=== PATIENT | male | born 1965 | race American Indian/Alaskan Native ===

== ENCOUNTER 2021-04-26 03:01 | Inpatient (IN) | payer OTHER, SELFPAY ==
--- NOTE | 2021-04-26 03:42 | Emergency Department Report ---
ED Shortness of Breath HPI - General Chief Complaint: Dyspnea/Respdistress Stated Complaint: DEANNE WEAKNESS, POSS PUI Time Seen by Provider: 04/26/21 03:31 Source: EMS Mode of arrival: Stretcher Limitations: No Limitations - History of Present Illness Initial Comments: Patient is 56 years old male with no significant past medical history. Patient presented to the ER complaining of shortness of breath, cough and generalized weakness. Patient denied any nausea or vomiting. No abdominal pain. Patient stated that he is homeless. Patient stated that he did not receive COVID-19 vaccination yet. MD Complaint: shortness of breath, cough -: week(s) Severity: moderate - Related Data Allergies Allergy/AdvReac Type Severity Reaction Status Date / Time No Known Allergies Allergy Verified 04/26/21 06:21 ED Review of Systems ROS: Stated complaint: DEANNE WEAKNESS, POSS PUI Other details as noted in HPI Comment: All other systems reviewed and negative Constitutional: denies: chills, fever ENT: denies: ear pain, dental pain Respiratory: cough, shortness of breath, SOB with exertion. denies: orthopnea Cardiovascular: denies: chest pain, palpitations, dyspnea on exertion Gastrointestinal: denies: abdominal pain, nausea, vomiting ED Past Medical Hx - Past Medical History Previous Medical History?: No - Surgical History Past Surgical History?: No ED Physical Exam - General Limitations: No Limitations General appearance: alert, in no apparent distress - Head Head exam: Present: atraumatic, normocephalic, normal inspection - Eye Eye exam: Present: normal appearance, PERRL - ENT ENT exam: Present: normal exam, normal orophraynx, mucous membranes moist - Neck Neck exam: Present: normal inspection, full ROM. Absent: tenderness, meningismus, lymphadenopathy, thyromegaly - Respiratory Respiratory exam: Present: rales. Absent: respiratory distress, wheezes, rhonchi, accessory muscle use, decreased breath sounds, prolonged expiratory - Extremities Exam Extremities exam: Present: normal inspection, full ROM, normal capillary refill. Absent: tenderness, pedal edema, calf tenderness - Back Exam Back exam: Present: normal inspection, full ROM. Absent: CVA tenderness (R), CVA tenderness (L), paraspinal tenderness, vertebral tenderness - Neurological Exam Neurological exam: Present: alert, oriented X3, CN II-XII intact - Psychiatric Psychiatric exam: Present: normal mood - Skin Skin exam: Present: warm, intact, normal color ED Course Vital Signs 04/26/21 04/26/21 04/26/21 03:37 03:46 04:00 Temperature Pulse Rate 108 H 102 H Respiratory 24 16 24 Rate Blood Pressure 108/77 112/79 Blood Pressure [Right] O2 Sat by Pulse 93 95 Oximetry 04/26/21 04/26/21 04/26/21 04:16 04:30 04:46 Temperature Pulse Rate 103 H 101 H 114 H Respiratory 26 H 30 H 12 Rate Blood Pressure 112/79 108/77 108/77 Blood Pressure [Right] O2 Sat by Pulse 92 91 93 Oximetry 04/26/21 04/26/21 04/26/21 05:00 05:16 05:17 Temperature Pulse Rate 102 H 101 H Respiratory 25 H 32 H Rate Blood Pressure 113/77 113/77 Blood Pressure [Right] O2 Sat by Pulse 93 91 94 Oximetry 04/26/21 04/26/21 04/26/21 05:30 05:46 06:00 Temperature Pulse Rate 99 H 94 H 95 H Respiratory 28 H 29 H 28 H Rate Blood Pressure 109/78 109/78 107/76 Blood Pressure [Right] O2 Sat by Pulse 91 93 92 Oximetry 04/26/21 04/26/21 04/26/21 06:03 06:16 06:30 Temperature 98.0 F Pulse Rate 89 100 H 106 H Respiratory 25 H 20 Rate Blood Pressure 107/76 117/78 Blood Pressure [Right] O2 Sat by Pulse 94 94 Oximetry 04/26/21 04/26/21 04/26/21 06:46 07:00 07:32 Temperature Pulse Rate 102 H 99 H 81 Respiratory 24 23 19 Rate Blood Pressure 117/78 110/70 Blood Pressure 124/71 [Right] O2 Sat by Pulse 99 Oximetry 04/26/21 04/26/21 04/26/21 09:01 10:08 12:49 Temperature Pulse Rate 92 H 74 Respiratory 19 19 19 Rate Blood Pressure Blood Pressure 110/75 118/81 [Right] O2 Sat by Pulse 96 96 95 Oximetry 04/26/21 17:44 Temperature Pulse Rate 81 Respiratory 19 Rate Blood Pressure Blood Pressure 110/68 [Right] O2 Sat by Pulse 95 Oximetry ED Medical Decision Making - Lab Data Result diagrams: 04/26/21 03:37 04/26/21 03:37 - Radiology Data Radiology results: report reviewed - Medical Decision Making Patient is 56 years old male with no significant past medical history. Patient presented to the ER complaining of shortness of breath, cough and generalized weakness. Patient denied any nausea or vomiting. No abdominal pain. Patient stated that he is homeless. Patient stated that he did not receive COVID-19 vaccination yet. Patient initial oxygen saturation was 91% improved to 95%. Chest x-ray showed bilateral patchy infiltrate consistent with atypical pneumonia. Patient received Rocephin, Zithromax and Decadron. Patient also started on normal saline. I discussed the patient with Dr. Pelaez, he agreed to admit the patient to medical service for further management. Critical Care Time: Yes Critical care time in (mins) excluding proc time.: 30 Critical care attestation.: If time is entered above; I have spent that time in minutes in the direct care of this critically ill patient, excluding procedure time. ED Disposition Clinical Impression: Pneumonia, Suspected COVID-19 virus infection, Lactic acidosis Disposition: OP ADMIT IP TO THIS HOSP Is pt being admited?: Yes Condition: Stable
[2021-04-26 03:50] LABS: Basophils % (Auto) 0.3 % (0.0-1.8); Lymphocytes # (Auto) 1.1 K/mm3 (1.2-5.4); Lymphocytes % (Auto) 11.1 % (13.4-35.0); Mean Corpuscular HGB Conc 36 % (32-34); Mean Corpuscular Volume 92 fl (84-94); Monocytes # (Auto) 1.1 K/mm3 (0.0-0.8); Monocytes % (Auto) 12.1 % (0.0-7.3); Platelet Count 338 K/mm3 (140-440); Red Blood Count 5.52 M/mm3 (3.65-5.03); Red Cell Distribution Width 15.2 % (13.2-15.2)
[2021-04-26 04:11] LABS: Calcium 9.1 mg/dL (8.4-10.2)
[2021-04-26 04:13] LABS: Hematocrit 50.5 % (35.5-45.6); Hemoglobin 17.9 gm/dl (11.8-15.2)
[2021-04-26] MEDS ORDERED: SODIUM CHLORIDE 0.9% 1000 ML 1,000 ML IV ONE (04:38)
--- NOTE | 2021-04-26 05:11 | XRay Report ---
CHEST 1 VIEW 04/26/2021 3:58 AM INDICATION / CLINICAL INFORMATION: Dyspnea. COMPARISON: None available. FINDINGS: SUPPORT DEVICES: None. HEART / MEDIASTINUM: No significant abnormality. LUNGS / PLEURA: Patchy bibasilar airspace disease. No pneumothorax. ADDITIONAL FINDINGS: No significant additional findings. IMPRESSION: 1. Patchy bibasilar pneumonia. Atypical/viral pneumonia could be considered. Signer Name: Helen Yi MD Signed: 04/26/2021 5:06 AM Workstation Name: [id number]
[2021-04-26] MEDS ORDERED: AZITHROMYCIN/NS 500 MG/250 ML 500 MG/250 ML BAG IV ONE (05:17)
[2021-04-26] MEDS ORDERED: cefTRIAXone/NS 1 GM/50 ML 1 GM/50 ML BAG IV ONE (05:17)
[2021-04-26] MEDS ORDERED: dexAMETHasone 4 MG/ML VIAL IV ONE (05:17)
--- NOTE | 2021-04-26 12:06 | History and Physical Report ---
History of Present Illness Date of examination: 04/26/21 Date of admission: 04/26/21 05:23 Chief complaint: shorntess of breath History of present illness: HPI 56 yo homeless gentleman presenting to our facility with complaint of shortness of breath. SOB is associated with cough, generalized weakness, nausea and vomtiing. He states his appetitie has been poor. Patient denied fevers/chills but did admit to generalized malaise. He denied being in contact with sick individuals to his knowledge but does state that he is homeless and does not adhere to strict masking policy. He has not yet recieved the covid 19 vaccination. Remainder of ROS negative except for stated above. On my encounter, he was not in any distress, breahting comfortably. His vitals were stable and he was saturating in mid 90's on room air. PMHx denies PSHx denies SH homeless denies smoking, etoh use, rec drug use FH reviewed non contributory. Allergies: NKDA Meds: denies Medications and Allergies Allergies Allergy/AdvReac Type Severity Reaction Status Date / Time No Known Allergies Allergy Verified 04/26/21 06:21 Active Meds: Active Medications Sodium Chloride (Nacl 0.9% 1000 Ml) 1,000 mls @ 100 mls/hr IV DIRECT SADIE Stop: 04/26/21 22:14 Review of Systems All systems: negative (for noted in HPI) Exam - Constitutional Vitals: Temp Pulse Resp BP Pulse Ox 98.0 F 92 H 19 110/75 96 04/26/21 06:03 04/26/21 09:01 04/26/21 10:08 04/26/21 09:01 04/26/21 10:08 General appearance: Present: no acute distress, well-nourished - EENT Eyes: Present: PERRL, EOM intact ENT: hearing intact, clear oral mucosa, poor dentition - Neck Neck: Present: supple, normal ROM - Respiratory Respiratory effort: normal - Cardiovascular Rhythm: regular - Extremities Extremities: no ischemia, pulses intact, No edema, normal temperature, normal color Peripheral Pulses: within normal limits - Abdominal General gastrointestinal: Present: soft, non-tender, non-distended - Psychiatric Psychiatric: appropriate mood/affect, cooperative - Neurologic Neurologic: CNII-XII intact HEART Score - HEART Score Troponin: Troponin T < 0.010 ng/mL (0.00-0.029) 04/26/21 05:17 Results - Labs CBC & Chem 7: 04/26/21 03:37 04/26/21 03:37 Labs: Laboratory Last Values WBC 9.5 K/mm3 (4.5-11.0) 04/26/21 03:37 RBC 5.52 M/mm3 (3.65-5.03) H 04/26/21 03:37 Hgb 17.9 gm/dl (11.8-15.2) H 04/26/21 03:37 Hct 50.5 % (35.5-45.6) H 04/26/21 03:37 MCV 92 fl (84-94) 04/26/21 03:37 MCH 33 pg (28-32) H 04/26/21 03:37 MCHC 36 % (32-34) H 04/26/21 03:37 RDW 15.2 % (13.2-15.2) 04/26/21 03:37 Plt Count 338 K/mm3 (140-440) 04/26/21 03:37 Lymph % (Auto) 11.1 % (13.4-35.0) L 04/26/21 03:37 [place] % (Auto) 12.1 % (0.0-7.3) H 04/26/21 03:37 Eos % (Auto) 0.0 % (0.0-4.3) 04/26/21 03:37 Baso % (Auto) 0.3 % (0.0-1.8) 04/26/21 03:37 Lymph # (Auto) 1.1 K/mm3 (1.2-5.4) L 04/26/21 03:37 [place] # (Auto) 1.1 K/mm3 (0.0-0.8) H 04/26/21 03:37 Eos # (Auto) 0.0 K/mm3 (0.0-0.4) 04/26/21 03:37 Baso # (Auto) 0.0 K/mm3 (0.0-0.1) 04/26/21 03:37 Seg Neutrophils % 76.5 % (40.0-70.0) H 04/26/21 03:37 Seg Neutrophils # 7.2 K/mm3 (1.8-7.7) 04/26/21 03:37 Sodium 141 mmol/L (137-145) 04/26/21 03:37 Potassium 4.7 mmol/L (3.6-5.0) 04/26/21 03:37 Chloride 104.3 mmol/L (98-107) 04/26/21 03:37 Carbon Dioxide 20 mmol/L (22-30) L 04/26/21 03:37 Anion Gap 21 mmol/L 04/26/21 03:37 BUN 61 mg/dL (9-20) H 04/26/21 03:37 Creatinine 2.4 mg/dL (0.8-1.3) H 04/26/21 03:37 Estimated GFR 28 ml/min 04/26/21 03:37 BUN/Creatinine Ratio 25 % 04/26/21 03:37 Glucose 139 mg/dL (75-100) H 04/26/21 03:37 Lactic Acid 2.70 mmol/L (0.7-2.0) H* 04/26/21 05:17 Calcium 9.1 mg/dL (8.4-10.2) 04/26/21 03:37 Troponin T < 0.010 ng/mL (0.00-0.029) 04/26/21 05:17 NT-Pro-B Natriuret Pep 20.78 pg/mL (0-900) 04/26/21 05:17 Microbiology: Microbiology 04/26/21 04:01 Peripheral/Venous Blood Culture - Preliminary Culture in Progress 04/26/21 03:55 Peripheral/Venous Blood Culture - Preliminary Culture in Progress Assessment and Plan Assessment and plan: 1. COVID 19 Pneumonia - Presented short of breath, however, saturating in 90's on RA this hospitalization. - WBC normal, LA downtrending - admission CXR notes patchy bilateral consolidation. Official read per radiology report. - empiric antibiotics: azithro/rocephin - hold off decadron at this time, patient does not meet criteria - prn albuterol inhaler - will hold off on ID/pulm consultations at this time. Potentially consider if patient deteriorates. 2. Acute Kidney Injury - likely pre-renal, dehydration - Cr: 2.1 - IV NS ordered - recheck BMP in AM 3. Lactic acidosis LA: 3.0--> 2.7, mostly secondary to dehydration. Downtrending 4. Homeless Single Person - noted on history 5. DVT prophylaxis -Heparin 5000 U subq bid. renal dosing Diet: Renal Dispo: Discharge home tomorrow if patient remains on room air. - Patient Problems (1) Respiratory distress Current Visit: Yes Status: Acute (2) Pneumonia due to 2019 novel coronavirus Current Visit: Yes Status: Acute (3) Acute kidney injury Current Visit: Yes Status: Acute (4) DVT prophylaxis Current Visit: Yes Status: Acute (5) Homeless single person Current Visit: Yes Status: Acute (6) Lactic acidosis Current Visit: Yes Status: Acute (7) Pneumonia Current Visit: Yes Status: Acute
[2021-04-26] MEDS ORDERED: SODIUM CHLORIDE 0.9% 1000 ML 1,000 ML IV SCH (12:15)
[2021-04-26] MEDS ORDERED: ALBUTEROL 2.5 MG/3 ML NEBU IH PRN (13:00)
[2021-04-26] MEDS ORDERED: ONDANSETRON 4 MG/2 ML INJ IV PRN (13:00)
[2021-04-26] MEDS ORDERED: ACETAMINOPHEN 325 MG TAB PO PRN (13:00)
[2021-04-26] MEDS ORDERED: oxyCODONE /ACETAMINOPHEN 5-325MG TAB PO PRN (13:00)
[2021-04-26] MEDS: HEPARIN 5,000 UNIT/1 ML VIAL SUB-Q SCH (23:13)
[2021-04-26] MEDS: DOCUSATE SODIUM 100 MG CAP PO SCH (23:13)
[2021-04-27 06:03] LABS: Calcium 8.3 mg/dL (8.4-10.2)
[2021-04-27] MEDS ORDERED: SODIUM POLYSTYRENE 15 GM/60 ML ORAL LIQD PO NR (09:30)
[2021-04-27] MEDS: DOCUSATE SODIUM 100 MG CAP PO SCH ×2 (10:30→21:42)
[2021-04-27] MEDS: HEPARIN 5,000 UNIT/1 ML VIAL SUB-Q SCH ×2 (10:31→21:42)
[2021-04-27] MEDS: AZITHROMYCIN/NS 500 MG/250 ML 500 MG/250 ML BAG IV SCH (10:31)
[2021-04-27] MEDS: cefTRIAXone/NS 1 GM/50 ML 1 GM/50 ML BAG IV SCH (10:31)
[2021-04-27] MEDS: DEXAMETHASONE 2 MG TAB PO SCH (11:06)
--- NOTE | 2021-04-27 13:05 | Consultation ---
History of Present Illness - Reason for Consult Consult date: 04/27/21 - History of Present Illness 56-year-old man no known past medical history presented to hospital complaining of shortness of breath. He also notes associated cough, weakness, nausea, vomiting. He is known to be homeless, and has not received a Covid vaccination. Afebrile with a normal white count. Covid positive. Decreased renal function. Blood cultures no growth so far. Currently on ceftriaxone and azithromycin. Imaging personally viewed: Chest x-ray: Patchy bibasilar pneumonia Review of systems: Deferred to reduce to the risk of transmission of COVID-19 Medications and Allergies Allergies Allergy/AdvReac Type Severity Reaction Status Date / Time No Known Allergies Allergy Verified 04/26/21 06:21 Home Medications Medication Instructions Recorded Confirmed Last Taken Type No Known Home Medications [No 04/27/21 04/27/21 Unknown History Reported Home Medications] Active Meds: Active Medications Acetaminophen (Acetaminophen 325 Mg Tab) 650 mg PO Q4H PRN PRN Reason: Pain MILD(1-3)/Fever >100.5/FARRELL Albuterol (Albuterol 2.5 Mg/3 Ml Nebu) 2.5 mg IH Q4HRT PRN PRN Reason: Shortness Of Breath Dexamethasone (Dexamethasone 2 Mg Tab) 6 mg PO Q24HR [facility] Last Admin: 04/27/21 11:06 Dose: 6 mg Documented by: Docusate Sodium (Docusate Sodium 100 Mg Cap) 100 mg PO BID SADIE Last Admin: 04/27/21 10:30 Dose: 100 mg Documented by: Heparin Sodium (Porcine) (Heparin 5,000 Unit/1 Ml Vial) 5,000 unit SUB-Q Q12HR SADIE Last Admin: 04/27/21 10:31 Dose: 5,000 unit Documented by: Ceftriaxone Sodium (Rocephin/Ns 1 Gm/50 Ml) 1 gm in 50 mls @ 100 mls/hr IV Q24H [facility]; Protocol Last Admin: 04/27/21 10:31 Dose: 100 mls/hr Documented by: Azithromycin (Zithromax/Ns) 500 mg in 250 mls @ 250 mls/hr IV Q24HR SADIE Last Admin: 04/27/21 10:31 Dose: 250 mls/hr Documented by: Ondansetron HCl (Ondansetron 4 Mg/2 Ml Inj) 4 mg IV Q8H PRN PRN Reason: Nausea And Vomiting Sodium Chloride (Sodium Chloride 0.9% 10 Ml Flush Syringe) 10 ml IV BID SADIE Last Admin: 04/27/21 11:07 Dose: 10 ml Documented by: Sodium Chloride (Sodium Chloride 0.9% 10 Ml Flush Syringe) 10 ml IV PRN PRN PRN Reason: LINE FLUSH Physical Examination - Physical Exam Narrative exam: Review of systems: Deferred to reduce to the risk of transmission of COVID-19 - Constitutional Vitals: Vital Signs Temp Pulse Resp BP Pulse Ox 98.0 F 75 27 H 132/87 95 04/26/21 06:03 04/27/21 10:00 04/27/21 10:00 04/27/21 10:00 04/27/21 10:00 Results - Labs CBC & Chem 7: 04/26/21 03:37 04/27/21 05:13 Labs: Abnormal lab results 04/26/21 04/27/21 Range/Units 09:02 05:13 Potassium 5.2 H (3.6-5.0) mmol/L BUN 67 H (9-20) mg/dL Creatinine 2.1 H (0.8-1.3) mg/dL Glucose 128 H (75-100) mg/dL Calcium 8.3 L (8.4-10.2) mg/dL Coronavirus (PCR) Positive A (Negative) Assessment and Plan Cultures: Blood culture no growth so far Covid PCR: Positive A/P: 56-year-old man no known past medical history admitted with COVID-19 #COVID-19 pneumonia: Patient presented with a week of symptoms, chest x-ray with bilateral infiltrates, admission O2 sats 92% on room air. #Acute hypoxemic respiratory failure: Likely secondary to COVID-19 infection. #BON: renally dose medications. Has improved, now candidate for Remdesivir. Recs: -Dexamethasone 6 mg IV/PO daily for 10 days -If requiring supplemental O2 recommend Remdesivir 200 mg IV q day x 1 followed by 100 mg IV q day x 4 days -Obtain q48-72h inflammatory markers - ferritin, Ddimer, CRP, LDH -Continue ceftriaxone 2 gm IV qday and azithromycin 500 mg PO qday, if procalcitonin <0.25 ng/mL stop antibiotics -Anticoagulation per hospital protocol -Proning as able Thank you for the consult, we will continue to follow. Lydia Monteiro MD [facility] ([facility] O: [phone] F: [phone]
--- NOTE | 2021-04-27 13:45 | Progress Note ---
Assessment and Plan This is a 56-year-old homeless man with no known past medical history who has not received Covid vaccination, presented to the hospital complaining of shortness of breath associated with cough weakness nausea and vomiting. Chest x-ray in the ER showed patchy bibasilar pneumonia, his Covid test was positive. Patient was admitted for further evaluation and management. Assessment and plan: --COVID-19 pneumonia -Patient tested positive for COVID-19 virus -CXR shows patchy parenchymal disease which represent atypical pneumonia -Placed on dexamethasone, azithromycin and Rocephin in the ED -Continue on dexamethasone for total 10 days and will initiate remdesivir total 5 days if patient becomes hypoxic -Follow inflammatory markers including procalcitonin level -Infectious disease consulted, appreciate recommendations -Droplet/contact isolation -Continue SPO2 monitoring -Supplemental oxygen as needed -Pulmonary hygiene -Prone to sleep -Vitamin C, vitamin D, zinc -Anticoagulation per protocol -Lasix IV as needed to prevent pulmonary edema --Acute hypoxemic respiratory failure, likely secondary to COVID-19 pneumonia -Nebs, empiric steroid, supplemental O2 as needed --BON, likely due to vasomotor nephropathy Renal function improving, continue gentle IV fluid hydration --Hyperkalemia, treated with Kayexalate and bicarbonate Repeat BMP tomorrow --Homelessness, patient has been living in the hotel, employment case manager to assist --DVT prophylaxis, continue heparin Daily clinical course: 04/27/21: Patient respiratory patel stable, continue to follow renal function. Creatinine slightly improved today, follow inflammatory markers. Potassium 5.2 : We will treat according to protocol. Repeat BMP tomorrow. Subjective Date of service: 04/27/21 Interval history: Patient seen and examined. Medical records and medication list reviewed. No acute event overnight noted by the RN. Patient denies any chest pain, improved difficulty breathing and able to ambulate. Patient is tolerating diet better. Patient resting on room air Discussed plan of care at bedside with patient. Objective - Exam Narrative Exam: Limited physical exam due to COVID-19 pandemic to minimize transmission of the disease and to preserve PPE. Vital reviewed and stable. GENERAL: well-developed well-nourished -[place] male lying on bed appeared to be in no discomfort. HEENT: Normocephalic. Atraumatic. NECK: Supple. CHEST/LUNGS: breathing nonlabored. HEART/CARDIOVASCULAR: Heart rate stable on telemetry ABDOMEN: Visibly not distended SKIN: There is no rash NEURO: No focal motor deficit. Follows command. MUSCULOSKELETAL: No joint effusion EXTRIMITY: No swelling, no cyanosis or clubbing. PSYCH: Cooperative. - Constitutional Vitals: Vital Signs - 12hr 04/27/21 04/27/21 04/27/21 01:46 02:00 02:16 Pulse Rate Respiratory Rate Blood Pressure 129/86 131/85 129/86 O2 Sat by Pulse 96 97 94 Oximetry 04/27/21 04/27/21 04/27/21 02:30 02:45 03:00 Pulse Rate Respiratory Rate Blood Pressure 117/78 117/78 112/81 O2 Sat by Pulse 93 92 92 Oximetry 04/27/21 04/27/21 04/27/21 03:16 03:30 03:46 Pulse Rate Respiratory Rate Blood Pressure 112/81 120/85 120/85 O2 Sat by Pulse 94 94 92 Oximetry 04/27/21 04/27/21 04/27/21 04:00 04:16 04:30 Pulse Rate Respiratory Rate Blood Pressure 119/75 119/75 114/82 O2 Sat by Pulse 94 93 94 Oximetry 04/27/21 04/27/21 04/27/21 04:46 05:00 08:00 Pulse Rate 79 Respiratory 17 Rate Blood Pressure 114/82 126/81 126/81 O2 Sat by Pulse 94 96 93 Oximetry 04/27/21 04/27/21 09:00 10:00 Pulse Rate 84 75 Respiratory 23 27 H Rate Blood Pressure 132/87 132/87 O2 Sat by Pulse 96 95 Oximetry - Labs CBC & Chem 7: 04/28/21 06:39 04/28/21 06:39 Labs: Abnormal lab results 04/26/21 04/27/21 Range/Units 09:02 05:13 Potassium 5.2 H (3.6-5.0) mmol/L BUN 67 H (9-20) mg/dL Creatinine 2.1 H (0.8-1.3) mg/dL Glucose 128 H (75-100) mg/dL Calcium 8.3 L (8.4-10.2) mg/dL Coronavirus (PCR) Positive A (Negative) HEART Score - HEART Score Troponin: Troponin T < 0.010 ng/mL (0.00-0.029) 04/26/21 05:17
[2021-04-28 08:04] LABS: Basophils % (Auto) 0.1 % (0.0-1.8); Hematocrit 38.6 % (35.5-45.6); Hemoglobin 13.5 gm/dl (11.8-15.2); Lymphocytes # (Auto) 1.3 K/mm3 (1.2-5.4); Lymphocytes % (Auto) 14.7 % (13.4-35.0); Mean Corpuscular HGB Conc 35 % (32-34); Mean Corpuscular Volume 93 fl (84-94); Monocytes # (Auto) 1.2 K/mm3 (0.0-0.8); Monocytes % (Auto) 12.8 % (0.0-7.3); Platelet Count 382 K/mm3 (140-440); Red Blood Count 4.15 M/mm3 (3.65-5.03); Red Cell Distribution Width 14.8 % (13.2-15.2)
[2021-04-28 08:39] LABS: Calcium 8.2 mg/dL (8.4-10.2)
[2021-04-28] MEDS ORDERED: SODIUM BICARB 8.4% 50 MEQ/50 ML SYRINGE IV NR (09:30)
[2021-04-28] MEDS ORDERED: SODIUM POLYSTYRENE 15 GM/60 ML ORAL LIQD PO NR (09:30)
[2021-04-28] MEDS: HEPARIN 5,000 UNIT/1 ML VIAL SUB-Q SCH ×2 (10:09→21:04)
[2021-04-28] MEDS: DEXAMETHASONE 2 MG TAB PO SCH (10:09)
[2021-04-28] MEDS: AZITHROMYCIN/NS 500 MG/250 ML 500 MG/250 ML BAG IV SCH (10:09)
[2021-04-28] MEDS: DOCUSATE SODIUM 100 MG CAP PO SCH ×2 (10:10→21:04)
[2021-04-28] MEDS: cefTRIAXone/NS 1 GM/50 ML 1 GM/50 ML BAG IV SCH (10:11)
--- NOTE | 2021-04-28 14:19 | Progress Note ---
Assessment and Plan This is a 56-year-old homeless man with no known past medical history who has not received Covid vaccination, presented to the hospital complaining of shortness of breath associated with cough weakness nausea and vomiting. Chest x-ray in the ER showed patchy bibasilar pneumonia, his Covid test was positive. Patient was admitted for further evaluation and management. Assessment and plan: --COVID-19 pneumonia -Patient tested positive for COVID-19 virus -CXR shows patchy parenchymal disease which represent atypical pneumonia -Placed on dexamethasone, azithromycin and Rocephin in the ED -Continue on dexamethasone for total 10 days and will initiate remdesivir total 5 days if patient becomes hypoxic -Follow inflammatory markers including procalcitonin level -Infectious disease consulted, appreciate recommendations -Droplet/contact isolation -Continue SPO2 monitoring -Supplemental oxygen as needed -Pulmonary hygiene -Prone to sleep -Vitamin C, vitamin D, zinc -Anticoagulation per protocol -Lasix IV as needed to prevent pulmonary edema --Acute hypoxemic respiratory failure, likely secondary to COVID-19 pneumonia -Nebs, empiric steroid, supplemental O2 as needed --BON, likely due to vasomotor nephropathy Renal function improving, continue gentle IV fluid hydration --Hyperkalemia, treated with Kayexalate and bicarbonate Repeat BMP tomorrow --Homelessness, patient has been living in the hotel, special education case manager to assist --Elevated LFT, likely due to COVID-19 infection, continue to trend --DVT prophylaxis, continue heparin Daily clinical course: 04/27/21: Patient respiratory patel stable, continue to follow renal function. Creatinine slightly improved today, follow inflammatory markers. Potassium 5.2 : We will treat according to protocol. Repeat BMP tomorrow. 04/28/21: Potassium level 5.3 today, creatinine continue to improve. Ordered for Kayexalate and sodium bicarbonate. Follow inflammatory markers and follow BMP. Patient resting on room air. Continue dexamethasone for now, pending procalcitonin level Subjective Date of service: 04/28/21 Interval history: Patient seen and examined. Medical records and medication list reviewed. No acute event overnight noted by the RN. Patient denies any chest pain, Patient is tolerating diet Patient resting on room air, denies SOB Discussed plan of care at bedside with patient. Objective - Exam Narrative Exam: Limited physical exam due to COVID-19 pandemic to minimize transmission of the disease and to preserve PPE. Vital reviewed and stable. GENERAL: well-developed well-nourished -[place]er male lying on bed appeared to be in no discomfort. HEENT: Normocephalic. Atraumatic. NECK: Supple. CHEST/LUNGS: breathing nonlabored. HEART/CARDIOVASCULAR: Heart rate stable on telemetry ABDOMEN: Visibly not distended SKIN: There is no rash NEURO: No focal motor deficit. Follows command. MUSCULOSKELETAL: No joint effusion EXTRIMITY: No swelling, no cyanosis or clubbing. PSYCH: Cooperative. - Constitutional Vitals: Vital Signs - 12hr 04/28/21 04/28/21 05:30 13:52 Temperature 98.1 F Pulse Rate 71 Respiratory 18 Rate Blood Pressure 128/80 O2 Sat by Pulse 93 97 Oximetry - Labs CBC & Chem 7: 04/28/21 06:39 04/29/21 08:13 Labs: Abnormal lab results 04/28/21 04/28/21 Range/Units 06:39 06:39 MCH 33 H (28-32) pg MCHC 35 H (32-34) % [place] % (Auto) 12.8 H (0.0-7.3) % [place] # (Auto) 1.2 H (0.0-0.8) K/mm3 Seg Neutrophils % 72.4 H (40.0-70.0) % Potassium 5.3 H (3.6-5.0) mmol/L Chloride 108.0 H (98-107) mmol/L BUN 47 H (9-20) mg/dL Creatinine 1.5 H (0.8-1.3) mg/dL Glucose 110 H (75-100) mg/dL Calcium 8.2 L (8.4-10.2) mg/dL AST 84 H (5-40) units/L ALT 114 H (7-56) units/L Alkaline Phosphatase 154 H (35-129) units/L Total Protein 5.7 L (6.3-8.2) g/dL Albumin 3.0 L (3.9-5) g/dL HEART Score - HEART Score Troponin: Troponin T < 0.010 ng/mL (0.00-0.029) 04/26/21 05:17
[2021-04-28 16:29] LABS: C-Reactive Protein 0.2 mg/dL (0.00-1.30)
--- NOTE | 2021-04-28 17:02 | Progress Note ---
Assessment and Plan Cultures: Blood culture no growth so far Covid PCR: Positive A/P: 56-year-old man no known past medical history admitted with COVID-19 #COVID-19 pneumonia: Patient presented with a week of symptoms, chest x-ray with bilateral infiltrates, admission O2 sats 92% on room air. #Acute hypoxemic respiratory failure: Likely secondary to COVID-19 infection. #BON: renally dose medications. Has improved, now candidate for Remdesivir. Recs: -Dexamethasone 6 mg IV/PO daily for 10 days -If requiring supplemental O2 recommend Remdesivir 200 mg IV q day x 1 followed by 100 mg IV q day x 4 days -Obtain q48-72h inflammatory markers - ferritin, Ddimer, CRP, LDH -Continue ceftriaxone 2 gm IV qday and azithromycin 500 mg PO qday, if procalcitonin <0.25 ng/mL stop antibiotics -Anticoagulation per hospital protocol -Proning as able Thank you for the consult, we will continue to follow. Lydia Monteiro MD [facility] O: [phone] F: [phone] Subjective Date of service: 04/28/21 Interval history: Afebrile, normal white count. Objective - Exam Narrative Exam: Review of systems: Deferred to reduce to the risk of transmission of COVID-19 - Constitutional Vitals: Vital Signs Temp Pulse Resp BP Pulse Ox 98.1 F 71 18 128/80 97 04/28/21 05:30 04/28/21 05:30 04/28/21 05:30 04/28/21 05:30 04/28/21 13:52 Temperature -Last 24 Hours Temperature 98.1 F Temperature 97.9 F - Labs CBC & Chem 7: 04/28/21 06:39 04/28/21 16:01 Labs: Abnormal lab results 04/28/21 04/28/21 04/28/21 Range/Units 06:39 06:39 16:01 MCH 33 H (28-32) pg MCHC 35 H (32-34) % Chambers % (Auto) 12.8 H (0.0-7.3) % Chambers # (Auto) 1.2 H (0.0-0.8) K/mm3 Seg Neutrophils % 72.4 H (40.0-70.0) % D-Dimer 817.59 H (0-234) ng/mlDDU Potassium 5.3 H (3.6-5.0) mmol/L Chloride 108.0 H (98-107) mmol/L BUN 47 H (9-20) mg/dL Creatinine 1.5 H (0.8-1.3) mg/dL Glucose 110 H (75-100) mg/dL Calcium 8.2 L (8.4-10.2) mg/dL Ferritin (30.0-300.0) ng/mL AST 84 H (5-40) units/L ALT 114 H (7-56) units/L Alkaline Phosphatase 154 H (35-129) units/L Lactate Dehydrogenase (91-180) units/L Total Protein 5.7 L (6.3-8.2) g/dL Albumin 3.0 L (3.9-5) g/dL 04/28/21 04/28/21 Range/Units 16:01 16:01 MCH (28-32) pg MCHC (32-34) % Chambers % (Auto) (0.0-7.3) % Chambers # (Auto) (0.0-0.8) K/mm3 Seg Neutrophils % (40.0-70.0) % D-Dimer (0-234) ng/mlDDU Potassium (3.6-5.0) mmol/L Chloride (98-107) mmol/L BUN (9-20) mg/dL Creatinine (0.8-1.3) mg/dL Glucose (75-100) mg/dL Calcium (8.4-10.2) mg/dL Ferritin 1502.0 H (30.0-300.0) ng/mL AST (5-40) units/L ALT (7-56) units/L Alkaline Phosphatase (35-129) units/L Lactate Dehydrogenase 649 H (91-180) units/L Total Protein (6.3-8.2) g/dL Albumin (3.9-5) g/dL
[2021-04-29 09:06] LABS: Alanine Aminotransferase 123 units/L (7-56); BUN/Creatinine Ratio 23; Bilirubin,Direct 0.3 mg/dL (0-0.2); Blood Urea Nitrogen 28 mg/dL (9-20); Calcium 8.1 mg/dL (8.4-10.2); Hemolysis Index 3
[2021-04-29] MEDS: cefTRIAXone/NS 1 GM/50 ML 1 GM/50 ML BAG IV SCH (10:01)
[2021-04-29] MEDS: DEXAMETHASONE 2 MG TAB PO SCH (10:02)
[2021-04-29] MEDS: DOCUSATE SODIUM 100 MG CAP PO SCH (10:03)
[2021-04-29] MEDS: AZITHROMYCIN/NS 500 MG/250 ML 500 MG/250 ML BAG IV SCH (10:03)
[2021-04-29] MEDS: HEPARIN 5,000 UNIT/1 ML VIAL SUB-Q SCH (10:03)
--- NOTE | 2021-04-29 10:21 | Progress Note ---
Assessment and Plan Cultures: Blood culture no growth so far Covid PCR: Positive A/P: 56-year-old man no known past medical history admitted with COVID-19 #COVID-19 pneumonia: Patient presented with a week of symptoms, chest x-ray with bilateral infiltrates, admission O2 sats 92% on room air. #Acute hypoxemic respiratory failure: Likely secondary to COVID-19 infection. #BON: renally dose medications. Has improved, now candidate for Remdesivir. Recs: -Dexamethasone 6 mg IV/PO daily for 10 days -If requiring supplemental O2 recommend Remdesivir 200 mg IV q day x 1 followed by 100 mg IV q day x 4 days -Obtain q48-72h inflammatory markers - ferritin, Ddimer, CRP, LDH -Procalcitonin normal, stopped antibiotics. -Anticoagulation per hospital protocol -Proning as able Thank you for the consult, we will continue to follow. OK for DC from ID perspective. Lydia Monteiro MD [facility] ([facility] O: [phone] F: [phone] Subjective Date of service: 04/29/21 Interval history: Afebrile, normal white count. No acute changes. Objective - Exam Narrative Exam: Review of systems: Deferred to reduce to the risk of transmission of COVID-19 - Constitutional Vitals: Vital Signs Temp Pulse Resp BP Pulse Ox 98.0 F 82 20 117/78 96 04/28/21 22:23 04/28/21 22:21 04/28/21 22:20 04/28/21 22:20 04/29/21 01:00 Temperature -Last 24 Hours Temperature 98.0 F Temperature 98.3 F - Labs CBC & Chem 7: 04/28/21 06:39 04/29/21 08:13 Labs: Abnormal lab results 04/28/21 04/28/21 04/28/21 Range/Units 16:01 16:01 16:01 D-Dimer 817.59 H (0-234) ng/mlDDU Chloride (98-107) mmol/L BUN (9-20) mg/dL Calcium (8.4-10.2) mg/dL Ferritin 1502.0 H (30.0-300.0) ng/mL Direct Bilirubin (0-0.2) mg/dL AST (5-40) units/L ALT (7-56) units/L Alkaline Phosphatase (35-129) units/L Lactate Dehydrogenase 649 H (91-180) units/L Total Protein (6.3-8.2) g/dL Albumin (3.9-5) g/dL 04/29/21 Range/Units 08:13 D-Dimer (0-234) ng/mlDDU Chloride 108.4 H (98-107) mmol/L BUN 28 H (9-20) mg/dL Calcium 8.1 L (8.4-10.2) mg/dL Ferritin (30.0-300.0) ng/mL Direct Bilirubin 0.3 H (0-0.2) mg/dL AST 79 H (5-40) units/L ALT 123 H (7-56) units/L Alkaline Phosphatase 136 H (35-129) units/L Lactate Dehydrogenase (91-180) units/L Total Protein 6.0 L (6.3-8.2) g/dL Albumin 3.0 L (3.9-5) g/dL
--- NOTE | 2021-04-29 11:01 | Electrocardiograph Report ---
[facility] Test Date: 2021-04-28 Test Time: 08:56:52 Pat Name: JAKI MATOS Department: Room: A354 2 Gender: M Bar Back: LUPILLO : 1965 Requested By: ABI SHETTY Order Number: [id number] Reading MD: Nora Fermin Measurements Intervals [place] Rate: 69 P: 61 TN: 175 QRS: 22 QRSD: 97 T: 35 QT: 438 QTc: 471 Interpretive Statements Sinus rhythm No previous ECG available for comparison Electronically Signed On 04-29-2021 11:01:16 EDT by Nora Fermin
--- NOTE | 2021-04-29 12:13 | Discharge Summary ---
Providers - Providers Date of Admission: 04/26/21 05:23 Date of discharge: 04/29/21 Attending physician: AARON DAN 04/27/21 09:07 Consult to Physician [CONS] Routine Comment: Consulting Provider: CHERRY GALLAGHER Physician Instructions: Reason For Exam: covid19 PNA Primary care physician: CARTRIDGE FEEDER Hospitalization Condition: Stable Pertinent studies: CXR Hospital course: This is a 56-year-old homeless man with no known past medical history who has not received Covid vaccination, presented to the hospital complaining of shortness of breath associated with cough weakness nausea and vomiting. Chest x-ray in the ER showed patchy bibasilar pneumonia, his Covid test was positive. Patient was admitted for further evaluation and management. -Patient was tested positive for COVID. -CXR showed patchy parenchymal disease which represent pulmonary edema or atypical pneumonia -Placed on dexamethasone for total 10 days, not placed on remdesivir as patient remained on RA -Antibiotic was not required as procalcitonin level was normal - Placed on Droplet/contact isolation, continuous SPO2 monitoring, supplemental oxygen as needed, pulmonary hygiene, prone to sleep, Vitamin C, vitamin D, zinc -Patient was given anticoagulation per protocol, -Infectious disease was consulted. Assessed for Home O2 requirement. -Patient's symptoms improved with current Mx and was assessed for home O2 requirement. - Patient was then discharged home in stable condition with outpt followup. Daily clinical course: 04/27/21: Patient respiratory patel stable, continue to follow renal function. Creatinine slightly improved today, follow inflammatory markers. Potassium 5.2 : We will treat according to protocol. Repeat BMP tomorrow. 04/28/21: Potassium level 5.3 today, creatinine continue to improve. Ordered for Kayexalate and sodium bicarbonate. Follow inflammatory markers and follow BMP. Patient resting on room air. Continue dexamethasone for now, pending procalcitonin level. 04/29/21; patient remains on RA, K, Cr normalized. Procalcitonin level normal so no need for antibiotics. Inflammatory markers stable. planned for d/c with outpt f/p. Recommended to stay quarantined per CDC guideline. Disposition: - TO HOME OR SELFCARE Final Discharge Diagnosis (Prints w/discharge instructions): --COVID-19 pneumonia. --Acute hypoxemic respiratory failure, resolved. --BON, likely due to vasomotor nephropathy, resolved. --Hyperkalemia, treated with Kayexalate and bicarbonate, resolved. --Elevated LFT, likely due to COVID-19 infection. --Homelessness, patient has been living in the hotel Time spent for discharge: 34 minutes Core Measure Documentation - Palliative Care Palliative Care/ Comfort Measures: Not Applicable - Core Measures Any of the following diagnoses?: none Exam - Physical Exam Narrative exam: Limited physical exam due to COVID-19 pandemic to minimize transmission of the disease and to preserve PPE. Vital reviewed and stable. GENERAL: well-developed well-nourished -[place] male lying on bed appeared to be in no discomfort. HEENT: Normocephalic. Atraumatic. NECK: Supple. CHEST/LUNGS: breathing nonlabored. HEART/CARDIOVASCULAR: Heart rate stable on telemetry ABDOMEN: Visibly not distended SKIN: There is no rash NEURO: No focal motor deficit. Follows command. MUSCULOSKELETAL: No joint effusion EXTRIMITY: No swelling, no cyanosis or clubbing. PSYCH: Cooperative. - Constitutional Vitals: Temp Pulse Resp BP Pulse Ox 98.0 F 82 20 117/78 96 04/28/21 22:23 04/28/21 22:21 04/28/21 22:20 04/28/21 22:20 04/29/21 01:00 Plan Activity: advance as tolerated Weight Bearing Status: Weight Bear as Tolerated Diet: low fat, low salt Additional Instructions: Upon discharge patient should self-quarantine at home up to 2 weeks from the onset of symptoms. Patients should return to hospital regardless if they have worsening fevers or respiratory status. Follow up with: PRIMARY CAREMD [Primary Care Provider] - 7 Days SIMONA CAMPOS MD [Staff Physician] - 7 Days Prescriptions: dexAMETHasone [Decadron] 6 mg PO Q24HR #6 tablet Albuterol Mdi (or & Nicu Only) [ProAir HFA Inhaler] 2 puff IH QID PRN #8.5 gram PRN Reason: Shortness Of Breath Ascorbic Acid [Vitamin C] 1,000 mg PO BID #14 tablet Cholecalciferol (Vitamin D3) [Vitamin D3] 5,000 unit PO DAILY #7 tablet Zinc Sulfate 220 mg PO BID #14 capsule
[2021-04-29] MEDS ORDERED: ASCORBIC ACID 500 MG TAB PO SCH (13:00)
[2021-04-29] MEDS ORDERED: CHOLECALCIFEROL (VIT D3) 5,000 UNIT TAB PO SCH (13:00)
[2021-04-29] MEDS ORDERED: ZINC SULFATE 220 MG CAP PO SCH (13:00)
[2021-04-29 13:31] VITALS: BP 126/77
== END 2021-04-29 18:17 | disposition home or self-care (01) | DRG 177 ==
LOC: ED 03:01 → 3A 05:23
PROVIDERS: ADMIT Hospitalist; ATTEND Internal Medicine
DX: U07.1 COVID-19 (principal); J12.82 Pneumonia due to coronavirus disease 2019; J96.01 Acute respiratory failure with hypoxia; N17.0 Acute kidney failure with tubular necrosis; E87.2 Acidosis; Z59.0 Homelessness; E87.5 Hyperkalemia
CPT/HCPCS: 36415; 71045; 80048; 80053; 80076; 82140; 82565; 82728; 83615; 83880; 84132; 84145; 84484; 85025; 85379; 86140; 87040; 93005; G0378; J0456; J0696; J1100; J1644; J7030; J8540; U0003